=== PATIENT | male | born 1955 | race Caucasian/White ===

== ENCOUNTER 2017-11-14 12:22 | Outpatient (CLI) | payer OTHER ==
--- NOTE | 2017-11-14 13:07 | XRay Report ---
ROUTINE CHEST, TWO VIEWS: HISTORY: Nicotine dependence unspecified. The trachea, heart, mediastinal contour, lung mccoy and bony thorax are unremarkable. IMPRESSION: Unremarkable chest x-ray.
== END 2017-11-14 12:23 | disposition home or self-care (01) ==
LOC: XRAY 12:22
PROVIDERS: ATTEND Internal Medicine
DX: F17.200 Nicotine dependence, unspecified, uncomplicated (principal)
CPT/HCPCS: 71046